=== PATIENT | female | born 1955 | race Caucasian/White ===

== ENCOUNTER 2018-01-25 13:25 | Emergency (ER) | payer SELFPAY ==
[~2018-01-25 13:25] MED LIST: Iopamidol 370 76% 100 ML VIAL ONE; Sodium Chloride 0.9% 1,000 ML BAG ONE; Sodium Chloride 0.9% 100 ML BAG ONE
[2018-01-25] MEDS ORDERED: Ondansetron HCl/PF 4 MG/2 ML Vial ONE (14:07)
[2018-01-25] MEDS ORDERED: Ibuprofen 800 MG TAB ONE (14:08)
[2018-01-25 14:53] LABS: Band 10 % (5-11); Lymphocytes 7 % (21-51); MDiff Complete? YES; Mean Corpuscular HGB CONC 34.9 g/dL (32.0-36.0); Mean Corpuscular Hemoglobin 29.7 pg (27.0-31.0); Mean Corpuscular Volume 85.1 fl (81.0-99.0); Mean Platelet Volume 9.2 fL (7.4-10.4); Monocytes 1 % (0-10); Neutrophil 82 % (42-75); PLT Morphology Comment Appears Adequate; Platelet Count 163 thou/uL (130-400); White Blood Cell (WBC) Count 15.4 thou/uL (4.8-10.8)
[2018-01-25 14:57] LABS: ALT (SGPT) 27 U/L (8-55); AST (SGOT) 25 U/L (5-34); Albumin 3.6 g/dL (3.4-4.8); Alkaline Phosphatase 119 U/L (40-150); Anion Gap 21 mmol/L (10-20); BUN (Urea Nitrogen) 21 mg/dL (9.8-20.1); Bilirubin, Total 1.5 mg/dL (0.2-1.2); CK (CPK) 63 U/L (29-168); Calc. Creatinine Clearance 0 mL/min (70-130); Calcium 9.2 mg/dL (7.8-10.44); Carbon Dioxide 20 mmol/L (23-31); Chloride 105 mmol/L (98-107); Estimated GFR-MDRD 39; Globulin 3.3 g/dL (2.4-3.5); Glucose 157 mg/dL (80-115); Lipase 5 U/L (8-78); Potassium 3.5 mmol/L (3.5-5.1); Protein, Total 6.9 g/dL (6.0-8.3); Sodium 142 mmol/L (136-145)
[2018-01-25 14:58] LABS: CKMB 0.6 ng/mL (0-6.6); Troponin I Less than 0.010 ng/mL (< 0.028)
[2018-01-25] MEDS ORDERED: Piperacillin/Tazobactam 4.5 GM VIAL ONE (15:34)
[2018-01-25 16:00] LABS: Clarity Cloudy (Clear); pH, Urine 5.5 (5.0-9.0)
[2018-01-25 16:01] LABS: Bilirubin Negative (Negative); Blood, Urine Moderate (Negative); Glucose, Urine (Dipstick) Negative (Negative); Leukocyte Small (Negative); Nitrite Positive (Negative); Protein, Urine (Dipstick) > or equal to 300 mg/dL (Neg-Trace)
[2018-01-25] MEDS ORDERED: Ciprofloxacin Lactate/D5W 400 mg/200 ml Premix ONE (16:15)
[2018-01-25 16:16] LABS: Squamous Epithelial 0-3 HPF (0-3)
[2018-01-25 16:17] LABS: Bacteria/HPF 3+ HPF (None Seen); Renal Epithelial None Seen HPF (0-3); Transitional Epithelial NONE SEEN HPF (0-3); Yeast-All Forms Rare HPF (None Seen)
[2018-01-25] MEDS ORDERED: Acetaminophen 500 MG TAB ONE (16:53)
--- NOTE | 2018-01-25 17:32 | CT ---
CT OF THE ABDOMEN AND PELVIS WITH IV CONTRAST: Indication: Left lower quadrant abdominal pain with nausea, vomiting, and diarrhea. Comparison: None. FINDINGS: There is an atrophic right kidney. There is an enlarged left kidney. There is some perinephric strand ing present. There is also periureteral and peripelvic stranding of the left renal collecting system without visible gross obstruction. The bladder is only partially filled. There is some scattered diverticula involving the colon. There is fatty infiltration of the liver. Th e gallbladder is surgically absent. Adrenal glands appear normal. No drainable fluid collection is evident. The appendix is not definitely demonstrated. There is scattered degenerative and osteoarthritic change. There is severe bilateral hip osteoarthros is. There is severe disc degenerative disease of the lower lumbar spine. IMPRESSION: 1. Perinephric stranding involving the left kidney with periureteral stranding involving the left yen al collecting system. Findings are suspicious for possible left ureteritis and/or pyelitis. There is no overt contrast enhancement consistent with pyelonephritis of the left kidney; however, pyelonephri tis is not totally excluded based on the current examination. Recommend correlation with clinical exa mination and urinary laboratories. 2. Atrophic right kidney. 3. Fatty liver. 4. Cholecystectomy. 5. Colonic diverticulosis. POS: [facility]
== END 2018-01-25 17:29 | disposition short-term general hospital (02) ==
LOC: MADERS 13:25
DX: A41.9 Sepsis, unspecified organism (principal); N12 Tubulo-interstitial nephritis, not specified as acute or chronic; I10 Essential (primary) hypertension
CPT/HCPCS: 36415; 74177; 80053; 81003; 81015; 82150; 82553; 83605; 83690; 84484; 85025; 87040; 87077; 87086; 87149; 87186; 87804; 94760; 96361; 96365; 96375; J0744; J2405; J2543; J7050

== ENCOUNTER 2020-12-10 08:09 | Outpatient (CLI) | payer MEDICARE, OTHER ==
[2020-12-10 08:30] LABS: Hemoglobin 13.4 g/dL (12.0-16.0); Mean Corpuscular HGB CONC 31.3 g/dL (32.0-36.0); Mean Corpuscular Hemoglobin 27.4 pg (27.0-31.0); Mean Corpuscular Volume 87.6 fL (78.0-98.0); Mean Platelet Volume 10.1 fL (7.4-10.4); Platelet Count 227 thou/uL (130-400); RBC Distribution Width 12.4 % (11.5-14.5); White Blood Cell (WBC) Count 7.4 thou/uL (4.8-10.8)
[2020-12-10 08:31] LABS: Bilirubin Negative (Negative); Blood, Urine Negative (Negative); Clarity Clear (Clear); Glucose, Urine (Dipstick) Negative (Negative); Ketone, Urine Negative (Negative); Leukocyte Negative (Negative); Nitrite Negative (Negative); Protein, Urine (Dipstick) 100 mg/dL (Neg-Trace); Urobilinogen 0.2 mg/dL (Less than 2); pH, Urine 5.5 (5.0-9.0)
[2020-12-10 08:34] LABS: Specific Gravity, Urine 1.025 (1.002-1.036)
[2020-12-10 08:51] LABS: Anion Gap 12 mmol/L (10-20); BUN (Urea Nitrogen) 14 mg/dL (9.8-20.1); BUN/Creatinine Ratio 14.89; Calc. Creatinine Clearance 0 mL/min (70-130); Calcium 9.3 mg/dL (7.8-10.44); Carbon Dioxide 27 mmol/L (23-31); Chloride 108 mmol/L (98-107); Glucose 113 mg/dL (80-115); Phosphorus 3.4 mg/dL (2.3-4.7); Potassium 3.8 mmol/L (3.5-5.1); Sodium 143 mmol/L (136-145)
[2020-12-10 17:33] LABS: Creatinine, Urine 241.73 mg/dL (47-110)
== END 2020-12-10 08:10 | disposition home or self-care (01) ==
LOC: MADLAB 08:09
PROVIDERS: ATTEND Internal Medicine Nephrology
DX: I12.9 Hypertensive chronic kidney disease with stage 1 through stage 4 chronic kidney disease, or unspecified chronic kidney disease (principal); N18.2 Chronic kidney disease, stage 2 (mild); I25.10 Atherosclerotic heart disease of native coronary artery without angina pectoris; A41.9 Sepsis, unspecified organism; G47.9 Sleep disorder, unspecified; N12 Tubulo-interstitial nephritis, not specified as acute or chronic; N17.9 Acute kidney failure, unspecified; N27.0 Small kidney, unilateral; N80.9 Endometriosis, unspecified; Q60.0 Renal agenesis, unilateral; E87.6 Hypokalemia; E28.2 Polycystic ovarian syndrome; K57.33 Diverticulitis of large intestine without perforation or abscess with bleeding; L50.9 Urticaria, unspecified; M85.80 Other specified disorders of bone density and structure, unspecified site; Z96.1 Presence of intraocular lens; Z87.440 Personal history of urinary (tract) infections; Z90.49 Acquired absence of other specified parts of digestive tract
CPT/HCPCS: 36415; 80069; 81003; 82570; 84156; 85027